=== PATIENT | female | born 1990 | race Caucasian/White ===

== ENCOUNTER → 2023-09-15 | Outpatient (CLI) | payer BC ==
[~2023-09-15] MED LIST: ALAVERT10 M1 PO; ANTIVERT 25MG25 MG PO; DUO-KAPS1 CAP PO; EC NAPROSYN375 MG PO; ELAVIL50 MG PO; FLEXERIL 1010 MG/TAB PO; FLOVENT 110MCG7.9 GM IH; Gadoterate 20 ML VIAL IV ONE; Iohexol 300 - 100 ML VIAL IV ONE; LORTAB 5/500 501 TAB PO; MIDRIN 325 MG-11 CAP PO; NAPROSYN500 MG PO; NORCO 325 MG-51 TAB PO; NS 100 ML IV SCH; NUVARING VAG RING VG; PREVACID 15MG15 M1 PO; PREVACID30 MG PO; [UNRECOGNIZED DRUG - OTHER]
== END ==
LOC: COL.RAD 07:06
DX: G43.009 Migraine without aura, not intractable, without status migrainosus (principal); Z86.73 Personal history of transient ischemic attack (TIA), and cerebral infarction without residual deficits
CPT/HCPCS: A9575; Q9967